=== PATIENT | male | born 1975 | race Caucasian/White ===

== ENCOUNTER 2024-09-08 12:37 | Outpatient (OUT) | payer OTHER, SELFPAY ==
--- NOTE | 2024-09-08 | ECG_ITS ---
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
--- NOTE | 2024-09-08 12:57 | XR_ITS ---
The [address] [address] Patient Name: ALISON GIRON MRN: [id number] date: 1975 Sex: M Assigned Patient Location: CARD Current Patient Location: Accession/Order Number: [id number] Exam Date: 09/08/2024 13:20 Report Date: 09/09/2024 09:39 At the request of: BRITTNY PARHAM Procedure: XR chest 2V EXAMINATION: XR chest 2V HISTORY: Chest Pain R07.9 COMPARISON: No relevant comparison available. TECHNIQUE: PA and lateral FINDINGS: LUNGS: No significant pulmonary parenchymal abnormalities. VASCULATURE: No increased pulmonary vasculature. PLEURA: No pneumothorax, effusion, or pleural thickening. CARDIAC: No cardiomegaly or cardiac silhouette abnormality. MEDIASTINUM: No visible mass or adenopathy. BONES: No fracture or visible bone lesion. OTHER: Negative. XR/XR chest 2V IMPRESSION: No acute cardiopulmonary process Electronically authenticated by: BRITTNY SHEFFIELD Date: 09/09/2024 09:39
[2024-09-08 13:57] LABS: Basophils Absolute Auto 0.1 10^3/uL (0.0-0.1); Basophils Percent Auto 0.6 % (0.2-2.0); Eosinophils Absolute Auto 0.1 10^3/uL (0.0-0.7); Eosinophils Percent Auto 1.5 % (0.9-7.0); Hematocrit 45.1 % (42.0-54.0); Hemoglobin 15.4 g/dL (14.0-18.0); Immature Granulocytes Abs Auto 0.02 10^3/uL (0.00-0.03); Immature Granulocytes Pct Auto 0.2 % (0.0-0.5); Lymphocytes Absolute Auto 1.9 10^3/uL (1.2-3.8); Lymphocytes Percent Auto 23.4 % (20.5-60.0); Mean Corpuscular HGB Conc 34.1 g/dL (29.9-35.2); Mean Corpuscular Volume 87.9 fL (80.0-94.0); Monocytes Absolute Auto 0.5 10^3/uL (0.3-0.8); Monocytes Percent Auto 6.6 % (1.7-12.0); Neutrophils Absolute Auto 5.5 10^3/uL (1.4-6.5); Neutrophils Percent Auto 67.7 % (43.0-75.0); Platelet Count 308 10^3/uL (150-450); Red Blood Count 5.13 10^6/uL (4.70-6.10); Red Cell Distribution Width 13.4 % (11.0-15.0); White Blood Count 8.1 10^3/uL (4.0-11.0)
[2024-09-08 14:22] LABS: Bilirubin Urine NEGATIVE (NEGATIVE); Blood Urine NEGATIVE (NEGATIVE); Clarity Urine CLEAR (CLEAR); Color Urine YELLOW (YELLOW); Glucose Urine UA NEGATIVE (NEGATIVE); Ketones Urine NEGATIVE (NEGATIVE); Leukocyte Esterase Urine NEGATIVE (NEGATIVE); Nitrite Urine NEGATIVE (NEGATIVE); Protein Urine NEGATIVE (NEG/TRACE); Specific Gravity Urine >=1.030 (1.005-1.025); Urobilinogen Urine 0.2 EU/dL (0.2-1.0)
[2024-09-08 14:34] LABS: Bacteria Urine TRACE #/HPF (NONE SEEN); Cast Seen? NONE SEEN #/LPF (NONE SEEN); Crystals Seen? None Seen #/HPF (None Seen); Mucus Urine SMALL (NONE SEEN); RBC Urine 0-2 #/HPF (0-2); Squamous Epithelial Cell Urine FEW #/LPF (NONE/RARE); Transitional Epi Cells Urine RARE #/LPF (NONE SEEN); Urine Culture Indicated NO; WBC Urine 0-2 #/HPF (NONE SEEN)
[2024-09-08 14:55] LABS: Alanine Aminotransferase 48 U/L (16-63); Albumin Level 3.8 g/dL (3.4-5.0); Alkaline Phosphatase 72 U/L (46-116); Anion Gap 14.8; Aspartate Amino Transferase 25 U/L (15-37); BUN Creatinine Ratio 9.1; Bilirubin Total 0.7 mg/dL (0.2-1.0); Calcium 9.3 mg/dL (8.5-10.1); Carbon Dioxide 26.1 mmol/L (21.0-32.0); Chloride 101 mmol/L (98-107); Chol HDL Ratio 3.1; Cholesterol 183 mg/dL (<=200); Estimated GFR (African America >60 (>=60 mL/min/1.73m^2); Estimated GFR (Non-African Ame >60 (>=60 mL/min/1.73m^2); Globulin 3.7 g/dL; Glucose 98 mg/dL (74-106); HDL Cholesterol 59 mg/dL (40-60); LDL Cholesterol Calculated 110.4 mg/dL; Potassium 3.9 mmol/L (3.5-5.1); Sodium 138 mmol/L (136-145); Thyroid Stimulating Hormone 0.968 uIU/mL (0.358-3.740); Total Protein 7.5 g/dL (6.4-8.2); Triglycerides 68 mg/dL (<=150); VLDL CHOLESTEROL 13.6 mg/dL
[2024-09-08 15:02] LABS: Estimated Average Glucose 117 mg/dL; Glycohemoglobin A1C 5.7 % (4.5-6.2)
[2024-09-08 15:38] LABS: Prostate Specific Antigen Scrn 0.32 ng/mL (<=4.00)
[2024-09-09 08:12] LABS: Insulin 22.9 uIU/mL (2.6-24.9)
== END 2024-09-08 12:38 | disposition home or self-care (01) ==
LOC: CARD 12:41
PROVIDERS: PCP Family Medicine; Visit Provider Family Medicine
DX: Z00.00 Encounter for general adult medical examination without abnormal findings (principal); R73.9 Hyperglycemia, unspecified; R63.5 Abnormal weight gain; R03.0 Elevated blood-pressure reading, without diagnosis of hypertension; R07.9 Chest pain, unspecified
CPT/HCPCS: 36415; 71046; 80053; 80061; 81001; 83036; 83525; 84443; 85025; 93005; G0103

== ENCOUNTER 2024-09-29 08:31 | Outpatient (OUT) | payer OTHER, SELFPAY ==
--- OUTSIDE RECORDS SUMMARY | 2024-09-29 08:43 | XMS_ITS | CCD ---
Author Organization [facility] Care Team Providers Care Hat Cone Inspector Name Role Phone DO Brittny Rascon Primary Care Provider [phone] YURIY Farnsworth Attending Provider HIMA FARNSWORTH Admitting Unavailable HIMA FARNSWORTH Attending Unavailable DIONE, DR MART Primary Care Unavailable TETO WOMACK Admitting Unavailable TETO WOMACK Attending Unavailable DIONE, DR MART Primary Care Unavailable NETTIE, DR BRITTNY Pardo Consulting Unavailable TETO WOMACK Consulting Unavailable HIMA FARNSWORTH Admitting Unavailable HIMA FARNSWORTH Attending Unavailable DIONE, DR MART Primary Care Unavailable HIMA FARNSWORTH Consulting Unavailable CAROLIN ABDI Consulting Unavailable HIMA FARNSWORTH Admitting Unavailable SHERRI, HIMA Franks Attending Unavailable DIONE, DR MART Primary Care Unavailable TETO WOMACK Admitting Unavailable TETO WOMACK Attending Unavailable DIONE, DR MART Primary Care Unavailable HIMA FARNSWORTH Admitting Unavailable HIMA FARNSWORTH Attending Unavailable DIONE, DR MART Primary Care Unavailable HIMA FARNSWORTH Consulting Unavailable HIMA CORRALES Consulting Unavailable TETO WOMACK Admitting Unavailable TETO WOMACK Attending Unavailable DIONE, DR MART Primary Care Unavailable NETTIE, DR BRITTNY Pardo Consulting Unavailable TETO WOMACK Consulting Unavailable HIMA FARNSWORTH Admitting Unavailable HIMA FARNSWORTH Attending Unavailable DIONE, DR MART Primary Care Unavailable NI, DR MARKUS Higginbotham Consulting Unavailable HIMA FARNSWORTH Consulting Unavailable HARPREET, DR OLVERA Admitting Unavailable HARPREET, DR OLVERA Attending Unavailable DIONE, DR MART Primary Care Unavailable HARPREET, DR OLVERA Consulting Unavailable PORTIA MARIE Consulting Unavailable Unavailable Primary Care Provider Unavailabl e Allergies Allergy Classification Reported Allergen(s) Allergy Type Date of Onset Reaction(s) Facility (1 source) buPROPion Drug Allergy [address] [place] [address] (1 source) Ciprofloxacin Drug Allergy 4 nausea [facility] (1 source) SUMAtriptan Drug Allergy 4 chest pain/pressure [facility] (1 source) Verapamil Drug Allergy 4 dizziness [facility] Medications Current Medications Medication Drug Class(es) Dates Sig (Normalized) Sig (Original) 8 hr acetaminophen 650 mg extended release oral tablet (1 source) Start: 09-08-2024 take 1 tablet by mouth every twelve hours Acetaminophen (Tylenol Arthritis Pain) 650 mg tablet extended release Active 650 MG PO Every 12 hours September 08, 2024 12:00am FLUoxetine 20 mg oral capsule (1 source) Serotonin Reuptake Inhibitor Start: 09-08-2024 take 20 mg by mouth once daily Fluoxetine Active 20 MG PO Daily September 08, 2024 12:00am valsartan 80 mg oral tablet (1 source) Angiotensin 2 Receptor Bryanna Start: 09-08-2024 take 80 mg by mouth once daily Valsartan Active 80 MG PO Daily September 08, 2024 12:00am Problems Active Problems Problem Classification Problem Date Documented Da te Episodic/Chronic Adjustment disorders (2 sources) Stress; Translations: [Reaction to severe stress, unspecified] 09-08-2024 Chronic Diabetes mellitus without complication (2 sources) Hyperglycemia; Translations: [Hyperglycemia, unspecified] 09-08-2024 Episodic Essential hypertension (1 source) Hypertensive disorder; Translations: [Essential (primary) hypertension] 09-08-2024 Chronic Joint disorders and dislocations; trauma-related (4 sources) Unspecified internal derangement of left knee; Translations: [UNS INTERNAL DERANGEMENT LEFT KNEE] Onset: 10-11-2021 Chronic Nonspecific chest pain (2 sources) Chest pain; Translations: [Chest pain, unspecified] 09-08-2024 Episodic Osteoarthritis (1 source) Primary osteoarthritis, left ankle and foot; Translations: [PRIMARY OSTEOARTHRITIS LT ANK FOOT] Onset: 08-25-2021 Chronic Other circulatory disease (1 source) Elevated blood pressure; Translations: [Elevated blood-pressure reading, without diagnosis of hypertension] 09-08-2024 Episodic Other circulatory disease (1 source) Elevated blood-pressure reading, without diagnosis of hypertension; Translations: [Elevated blood pressure reading without diagnosis of hypertension] 09-08-2024 Episodic Other nervous system disorders (4 sources) Unspecified mononeuropathy of left lower limb; Translations: [UNS MONONEUROPATHY LEFT LOWER LIMB] Onset: 05-20-2022 Chronic Other nervous system disorders (1 source) Paresthesia of upper limb; Translations: [Anesthesia of skin] 09-08-2024 Episodic Other nervous system disorders (1 source) Anesthesia of skin; Translations: [Disturbance of skin sensation] 09-08-2024 Episodic Phlebitis; thrombophlebitis and thromboembolism (4 sources) Personal history of other venous thrombosis and embolism; Translations: [PERS HX OTH VENOUS THROMBOSIS AND EMBO] Onset: 05-16-2022 Episodic Residual codes; unclassified (1 source) Sleep apnea; Translations: [Sleep apnea, unspecified] 09-08-2024 Chronic Residual codes; unclassified (1 source) Sleep apnea, unspecified; Translations: [Unspecified sleep apnea] 09-08-2024 Chronic Past or Other Problems Problem Classification Problem Date Documented Da te Episodic/Chronic Other bone disease and musculoskeletal deformities (1 source) Other specified disorders of bone density and structure, left ankle and foot; Translations: [[facility] D/O BONE DEN STRUCT LT ANK FOOT] Onset: 09-04-2021 Episodic Other connective tissue disease (1 source) Posterior tibial tendinitis, left leg; Translations: [POSTERIOR TIBIAL TENDINITIS LT LEG] Onset: 05-01-2022 Episodic Other connective tissue disease (5 sources) Pain in left foot; Translations: [PAIN IN LEFT FOOT] Onset: 09-04-2021 Episodic Other non-traumatic joint disorders (4 sources) Pain in left ankle and joints of left foot; Translations: [PAIN IN LEFT ANKLE] Onset: 08-27-2021 Episodic Other non-traumatic joint disorders (4 sources) Pain in left knee; Translations: [PAIN IN LEFT KNEE] Onset: 08-16-2021 Episodic Residual codes; unclassified (1 source) Other specified postprocedural states; Translations: [[facility] SPECIFIED POSTPROCEDURAL STATES] Onset: 08-25-2021 Episodic Results Test Name Value Interpretation Reference Range Facil ity US RASHID DOP LEG LTon 05-16-20 22 US RASHID DOP LEG LT EXAM: US RASHID DOP LEG LT HISTORY: This is a 47-year-old with pain and swelling of the left lower extremity for the past year. The patient had ankle surgery 1 year ago. COMPARISON: None. TECHNIQUE: Multiple sonographic images of the deep veins of the left lower extremity were obtained, supplemented with Doppler. FINDINGS: The deep veins of the lower extremities are fairly well-visualized the groin to the mid calf. The peroneal vein is not visualized. No filling defect is identified to indicate a thrombus. There is normal compression augmentation of flow throughout. The superficial veins also are intact. IMPRESSION: There is no direct or indirect evidence of deep vein thrombosis in the left lower extremity at this time. Electronically authenticated by: HIMA CORRALES Date: 2022-05-16 13:08 Normal [facility] MRI FOOT LT WO W CONon 04-29 MRI FOOT LT WO W CON EXAM: MRI FOOT LT WO W CON REASON FOR EXAM: Mononeuropathy of lower limb. TECHNIQUE: Multiplanar, multisequence imaging of the left foot was performed before and after the uneventful intravenous administration of gadolinium contrast COMPARISON: Plain radiograph 11/26/2021. FINDINGS: Study degraded by motion large [id number]. The Achilles tendon demonstrates fusiform thickening and intermediate signal consistent with tendinosis. No discrete tear identified. The plantar fascia is thickened with intermediate signal consistent with chronic plantar fasciopathy. No discrete tear identified. Laterally, the peroneal tendons are mildly thickened with intermediate signal consistent with tendinosis. No discrete tear identified. The superficial peroneal retinaculum is intact. The anterior talofibular ligament is thin and attenuated suggesting prior lateral ligamentous injury. No definite evidence of acute lateral ligamentous injury. Medially, the medial flexor tendons demonstrate normal thickness and without tendinosis or tear. The deep deltoid ligament is grossly intact. The spring ligament is intact. The Lisfranc ligament is partially imaged and intact. Anteriorly, the anterior extensor tendons demonstrate normal thickness and signal without tendinosis or tear. The bone marrow signal is without fracture or osteonecrosis. There are postsurgical changes from prior subtalar fusion. There is incomplete fusion of the subtalar joint, greater than 50%. There is also partial fusion of the anterior subtalar joint. The sinus tarsi is narrowed. The midfoot is congruent. No acute or aggressive osseous abnormality identified in the foot. There is mild intermetatarsal bursitis involving the third intermetatarsal web space. No discrete neuroma identified. IMPRESSION: 1. Third intermetatarsal web space bursitis without discrete neuroma. 2. Achilles tendinosis without discrete tear. 3. Plantar fasciopathy without tear. 4. Postsurgical changes from subtalar fusion with incomplete fusion. 5. Sequela of prior lateral ligamentous injury. Electronically authenticated by: CAROLIN ABDI Date: 2022-04-29 08:01 Normal [facility] XR foot LT min 3V*on 022 XR foot LT min 3V* [facility] [address] [place] [address] [place] [address] XRay Report Signed Patient: Abebe Deleon MR#: [id number] 1 : 1975 Acct:[id number] Age/Sex: 47 / M ADM Date: 04/22/22 Loc: [facility] Room: Type: [facility] Attending Dr: Hima Farnsworth DPM, MS Ordering Provider: Hima Farnsworth DPM, MS Date of Service: 04/22/22 XR/XR foot LT min 3V*: M19.072 Copies to: Hima Farnsworth DPM, MS 3 viewsLEFT foot plain film COMPARISON:03/19/21 HISTORY:Generalized LEFT foot pain. Fusion of the talocalcaneal articulation with 2 screws present. No hardware failure. Bony alignment adequate. No acute bony findings. No soft tissue abnormality. XR/XR foot LT min 3V* IMPRESSION:Stable fusion changes. Impression dictated by: Rylan De La Fuente M.D.04/22/2022 11:55 AM Dictation Location: [place] [address] Transcribed By: [facility] 04/22/22 1155 Dictated By: Rylan De La Fuente DO 04/22/22 1151 Signed By: 04/22/22 1155 Normal [facility] MRI KNEE LT WO CONon 021 MRI KNEE LT WO CON EXAM: MRI KNEE LT WO CON HISTORY: Left knee pain which extends anteriorly. No recent injury. COMPARISON: None. TECHNIQUE: Multiplanar and multisequence imaging of the left knee was performed without contrast. The knee coil could not be used due to the patient's body habitus. FINDINGS: Exam is degraded by motion artifact and technical factors as the knee coil could not be used. The anterior cruciate ligament, posterior cruciate ligament, and collateral ligaments are intact. The patellar tendon, distal quadriceps tendon, and iliotibial band are intact. There is a small bandlike area of fluid signal anterior to the proximal fibers of the patellar tendon consistent with mild prepatellar bursitis. There is an obliquely oriented longitudinal tear of the posterior horn of the medial meniscus at the meniscal root well seen on sagittal fat-saturated proton density images 23 and 24. Moderate grade articular cartilage loss is more pronounced along the central aspect of the medial femoral condyle within the medial compartment. No lateral meniscal tear is evident. Articular cartilage in the lateral compartment is intact. There is a small joint effusion. Mild chondromalacia is present in the patellofemoral compartment. There is mild to moderate bone marrow edema in the medial aspect of medial femoral condyle suspicious for a bony contusion or stress response. There is a tiny Arredondo cyst. IMPRESSION: 1. There is an obliquely oriented longitudinal tear in the posterior horn of the medial meniscus towards the meniscal root. Moderate grade articular cartilage loss in the medial compartment is more pronounced along the medial femoral condyle centrally. 2. No MRI evidence of lateral meniscal tear or acute ligament tear. 3. There is mild prepatellar bursitis. 4. Mild to moderate bone marrow edema is present in the medial aspect of the medial femoral condyle suspicious for a bony contusion or stress response. Electronically authenticated by: PORTIA MARIE Date: 2021-10-11 16:30 Normal [facility] Vital Signs Date Time Vital Sign Value Performing Clinician Veronica maya 09-08-2024 11:40-0400 Body height 187.96 cm [facility] 09-08-2024 11:40-0400 Body mass index (BMI) [Ratio] 53 kg/m2 [facility] 09-08-2024 11:40-0400 Body temperature 97.8 [degF] [facility] 09-08-2024 11:40-0400 Body weight 187.33 kg [facility] 09-08-2024 11:40-0400 Diastolic blood pressure 94 mm[Hg] [facility] 09-08-2024 11:40-0400 Heart rate 89 /min [facility] 09-08-2024 11:40-0400 Respiratory rate 18 /min [facility] 09-08-2024 11:40-0400 SaO2% (BldA) [Mass fraction] 98 % [facility] 09-08-2024 11:40-0400 Systolic blood pressure 172 mm[Hg] [facility] Encounters Encounter Date Encounter Type Care Provider Facility Start: 09-08-2024 Patient encounter status [facility] Start: 09-08-2024 End: 09-08-2024 ambulatory [facility] Work Phone: Start: 09-08-2024 End: 09-08-2024 Encounter for general adult medical examination without abnormal findings [facility] Start: 09-08-2024 End: 09-08-2024 Patient encounter procedure [facility] Work Phone: Start: 08-29-2024 End: 09-06-2024 Telephone encounter Sydnie Mcneal CMA [facility] Start: 06-11-2022 ambulatory HIMA FARNSWORTH Faci lity:H1 Start: 05-20-2022 End: 06-07-2022 ambulatory HIMA D NICOLEANDER Facility:[facility] Start: 05-16-2022 End: 05-17-2022 ambulatory HIMA D NICOLEANDER Facility:[facility] Start: 04-25-2022 End: 04-26-2022 ambulatory HIMA RIVERAANDER Facility:[facility] Start: 04-22-2022 End: 04-22-2022 Patient encounter procedure DO Brittny Rascon Work Phone: [facility] Start: 11-26-2021 End: 11-27-2021 ambulatory TETO WOMACK Facility:[facility] Start: 10-11-2021 End: 10-12-[address] WADE MULLINS Facility:[facility] Start: 09-26-2021 End: 09-27-2021 ambulatory HIMA D NICOLEANDER Facility:[facility] Start: 08-27-2021 End: 08-28-2021 ambulatory TETO WOMACK Facility:[facility] Start: 08-16-2021 End: 11-15-2021 ambulatory TETO WOMACK Facility:[facility] Procedures Date Procedure Procedure Detail Performing Clinician Start: 04-22-2022 X-ray of left foot DO Golden Rascon Work Phone: Plan of Treatment Date Care Activity Detail Author Start: 07-31-2024 Influenza vaccination Influenza Vacc ine [facility] Start: 1994 DTaP,Tdap and Td Vac cines (1 - Tdap) DTaP,Tdap and Td Vaccines (1 - Tdap) [facility] Start: 1993 Adult BMI Screening Adult BMI Screen ing [facility] Start: 1987 Depression Screening Depression Scre ening [facility] Start: 1987 Tobacco Screening Tobacco Screening [facility] Comprehensive metabo lic 1999 panel - Serum or Plasma [facility] EKG 12 channel panel [facility] Insulin [Units/volum e] in Serum or Plasma [facility] XR Chest 2 Views [facility] Immunizations Immunization Date Immunization Notes Care Provider Fa cility 03-18-2021 COVID-19 mRNA, Comir kristen (Pfizer) [facility] 02-25-2021 COVID-19 mRNA, Comir kristen (Pfizer) [facility] Payers Date Payer Category Payer Unknown [id number] 2.16.84 [id number] 1975 Unknown [id number] 2.16.84 [id number] 1975 Unknown [id number] 2.16.84 [id number] 1975 Unknown [id number] 2.16.84 [id number] 1975 Unknown [id number] 2.16.84 [id number] 1975 Unknown [id number] 2.16.84 [id number] 1975 Unknown [id number] 2.16.84 [id number] 1975 Unknown [id number] 2.16.84 [id number] 1975 Unknown [id number] 2.16.84 [id number] 1959 Unknown [id number] 0e [id number] Self-pay Self Pay [id number] Social History Date Type Detail Facility [facility] if ever smoked [facility] Work Phone: Start: 1975 Sex Assigned At Male [facility] Tobacco smoking consumption unknown [facility] Start: 05-11-2019 History of Social function [facility] Start: 05-11-2019 Childcare [facility] Childcare Unknown [facility] Start: 1975 Sex assigned at Not on file [facility] Start: 09-08-2024 Tobacco [facility] (finding) [facility] Clinical Notes 08-27-2021 to 08-29-2024 Telephone Encounter - Sydnie Mcneal CMA - 08/29/2024 11:36 AM EDTTelephone Encounter - Kurt Hillman DO - 08/29/2024 11:36 AM EDT Note Date & Type Note Facility 08-29-2024 Miscellaneous Notes Formattin g of this note might be different from the original. Ronnie called to see if you would accept him as a new patient? Okay LM to Cb For New patient documented in this encounter [facility] 08-29-2024 Telephone encount er Note Ronnie called to see if you would accept him as a new patient? [facility] [employer] [facility] 08-29-2024 Telephone encount er Note [facility] 08-29-2024 Telephone encount er Note LM to Cb For New patient [facility] 11-26-2021 Note PROCEDURE: XR FOOT L T MIN 3 VIEWS COMPARISON: 09/26/2021 HISTORY: Pain in left foot FINDINGS: BONES:No acute fracture or dislocation. Subtalar fusion with 2 cannulated lag screws. Moderate enthesopathic spurring of the calcaneus. Mild degenerative changes with marginal osteophyte formation. SOFT TISSUES:Negative. No visible soft tissue swelling. EFFUSION:None visible. OTHER: Negative. IMPRESSION: Stable subtalar fusion Electronically authenticated by: BRITTNY SHEFFIELD Date: 2021-11-26 09:19 [facility] 09-26-2021 Note PROCEDURE: XR FOOT L T MIN 3 VIEWS HISTORY: Pain in left foot COMPARISON: XR foot left 08/19/2021 FINDINGS: BONES:Subtalar fusion with out evidence of fracture or loosening of the 2 lag screws. Osteopenia of the foot. Mild degenerative changes of the tarsal-metatarsal joints. No fracture or dislocation. Large degenerative calcaneal enthesophytes. SOFT TISSUES:No visible soft tissue swelling. EFFUSION:None visible. OTHER: Negative. IMPRESSION: 1. Subtalar fusion without evidence of hardware failure or change in alignment. 2. No acute abnormality. Stable mild-moderate degenerative changes. Electronically authenticated by: MARKUS DAN Date: 2021-09-26 16:18 [facility] 08-27-2021 Note PROCEDURE: XR ANKLE LT MIN 3 V, XR FOOT LT MIN 3 VIEWS COMPARISON: 05/31/2021 HISTORY: Pain of left ankle joint FINDINGS: BONES:No acute fracture or dislocation. Stable subtalar joint fusion with 2 cannulated lag screws. Some lucency surrounds the posterior screw. Moderate enthesopathic spurring of the calcaneus. Lucency in the distal tibia likely bone graft harvesting. There is been interval development of a permeative pattern throughout the foot and ankle SOFT TISSUES:Negative. No visible soft tissue swelling. EFFUSION:None visible. OTHER: Negative. IMPRESSION: Suspected loosening surrounding the posterior subtalar fixation screw Moderate to marked osteopenia Electronically authenticated by: BRITTNY SHEFFIELD Date: 2021-08-27 10:17 [facility] 08-27-2021 Note PROCEDURE: XR ANKLE LT MIN 3 V, XR FOOT LT MIN 3 VIEWS COMPARISON: 05/31/2021 HISTORY: Pain of left ankle joint FINDINGS: BONES:No acute fracture or dislocation. Stable subtalar joint fusion with 2 cannulated lag screws. Some lucency surrounds the posterior screw. Moderate enthesopathic spurring of the calcaneus. Lucency in the distal tibia likely bone graft harvesting. There is been interval development of a permeative pattern throughout the foot and ankle SOFT TISSUES:Negative. No visible soft tissue swelling. EFFUSION:None visible. OTHER: Negative. IMPRESSION: Suspected loosening surrounding the posterior subtalar fixation screw Moderate to marked osteopenia Electronically authenticated by: BRITTNY SHEFFIELD Date: 2021-08-27 10:17 [facility] Evaluation note No assessment inform ation available [facility] Work Phone: Evaluation note Diagnosis Onset Date Chest pain acute Elevated blood pressure reading acute Hyperglycemia acute Numbness and tingling in left arm acute Sleep apnea acute Stress acute Wellness examination acute [facility] Work Phone: InstructionsNot on filedocumented in this encounter [employer] Advance Directives Advance Directive Response Recorded Date/ Time Advance Directives No March 21, 021 2:48pm Summary Purpose Family History Relationship Condition Age at Onset Recorded Date/T hoa brother Sleep apnea Unknown Unknown father Cardiomegaly Unknown grandparent Unknown Alzheimer's disease Unknown Family history of mental disorder Unknown grandparent Liver failure Unknown mother Diabetes mellitus Unknown Hypertension Unknown Chief Complaint and Reason for Visit Chief Complaint re-establish care/el evated BP Reason for Visit Chest pain Elevated blood pressure reading Hyperglycemia Numbness and tingling in left arm Sleep apnea Stress Wellness examination Additional Source Comments Care Teams (unrecognized sec tion and content) Team Status: Inactive Member Role Status Dates Brittny Rascon , Primary Care Provider Active Hima Farnsworth DPM MS Attending Provider Active Team Status: Active Member Role Status Dates Brittny Rascon , Primary Care Provider Active Team Status: Inactive Member Role Status Dates Brittny Rascon DO Primary Care Provide r, Attending Provider Active Start: September 08, 2024 End: September 08, 2024 Goals (unrecognized section and content) Goals may be documented in a n alternate sectionNot on filedocumented as of this encounterGoals may be documented in an alternate section (unrecognized sect ion and content) No Status Records FoundNo Status Records Found INFORMATION SOURCE (unrecogn ized section and content) DATE CREATED AUTHOR 05/07/2022 [facility] DATE CREATED AUTHOR 'S MARYIZ ATION 08/07/2022 [facility] FOR RECORDS PERTAINING TO PATIENTS WHO ARE OR HAVE BEEN ENROLLED IN A CHEMICAL DEPENDENCY/SUBSTANCEABUSE PROGRAM, SOME INFORMATION MAY BE OMITTED. This clinical summary was aggregated from multiple sources. Caution should be exercised in using it in the provision of clinical care. This summary normalizes information from multiple sources, and as a consequence, information in this document may materially change the coding, format and clinical context of patient data. In addition, data may be omitted in some cases. CLINICAL DECISIONS SHOULD BE BASED ON THE PRIMARY CLINICAL RECORDS. [facility] [employer] [facility]. provides no warranty or guarantee of the accuracy or completeness of information in this document.
[2024-09-29 09:19] LABS: BUN Creatinine Ratio 14.1; Calcium 8.5 mg/dL (8.5-10.1); Carbon Dioxide 25.2 mmol/L (21.0-32.0); Chloride 104 mmol/L (98-107); Estimated GFR (African America >60 (>=60 mL/min/1.73m^2); Estimated GFR (Non-African Ame >60 (>=60 mL/min/1.73m^2); Glucose 154 mg/dL (74-106); Potassium 4.2 mmol/L (3.5-5.1); Sodium 140 mmol/L (136-145)
== END 2024-09-29 08:32 | disposition home or self-care (01) ==
LOC: LAB 08:33
PROVIDERS: PCP Family Medicine; Visit Provider Family Medicine
DX: R03.0 Elevated blood-pressure reading, without diagnosis of hypertension (principal)
CPT/HCPCS: 36415; 80048